=== PATIENT | female | born 1965 | race Caucasian/White ===

== ENCOUNTER → 2021-07-11 10:26 | Outpatient (CLI) | payer OTHER, SELFPAY ==
[2021-07-11 11:19] LABS: COVID19 -Nasal RAPID Negative (Negative)
== END ==
PROVIDERS: Referring Provider Physician Assistant; Visit Provider Physician Assistant
DX: R05 Cough (principal); Z20.822 Contact with and (suspected) exposure to COVID-19
CPT/HCPCS: 87635